=== PATIENT | male | born 1995 | race Asian ===

== ENCOUNTER → 2017-07-24 | Outpatient (CLI) | payer BC ==
[2017-07-24 09:57] LABS: BASOPHILS % 0.7 % (0.0-2.0); HEMATOCRIT. 46.2 % (42.0-52.0); HEMOGLOBIN. 15.9 g/dL (14.0-18.0); MEAN CORPUSCULAR HEMOGLOBIN 28.9 pg (28.0-32.0); MEAN CORPUSCULAR VOLUME 84.3 fL (80.0-94.0); MEAN PLATELET VOLUME 7.7 fl (7.4-10.4); NEUTROPHILS % 53.3 % (40.0-76.0); PLATELET 339 x1000/uL (130-400); RED BLOOD CELL COUNT 5.48 mill/uL (4.7-6.1); RED CELL DISTRIBUTION WIDTH 13.1 % (11.6-14.6)
[2017-07-24 10:06] LABS: CLARITY URINE CLEAR (CLEAR); COLOR URINE YELLOW (YELLOW); GLUCOSE URINE NEGATIVE (NEGATIVE); KETONES URINE NEGATIVE (NEGATIVE); LEUKOCYTE ESTERASE URINE NEGATIVE (NEGATIVE); NITRITE URINE NEGATIVE (NEGATIVE); OCCULT BLOOD URINE NEGATIVE (NEGATIVE); PH URINE 5.5 (4.5-8.0); PROTEIN URINE NEGATIVE (NEGATIVE); SPECIFIC GRAVITY URINE 1.024 (1.005-1.030); UROBILINOGEN URINE 0.2 E.U./dL (0.2-1.0)
[2017-07-24 10:20] LABS: C REACTIVE PROTEIN QUANT 5.7 mg/L (0.0-3.0); CARBON DIOXIDE 27 mEq/L (21-32); CHLORIDE 104 mEq/L (98-107); HDL CHOLESTEROL 40 mg/dL (40-59); LDL CHOLESTEROL 153 mg/dL (5-100); T4 FREE 1.17 ng/dL (0.76-1.46)
[2017-07-24 11:43] LABS: FERRITIN 305 ng/mL (22-322)
[2017-07-24 16:06] LABS: VITAMIN B12 SERUM 378 pg/mL (211-911)
[2017-07-25 13:12] LABS: INSULIN 15.5 uIU/mL (2.6-24.9)
[2017-07-27 17:12] LABS: 25-HYDROXY VITAMIN D3 35 ng/mL (.)
== END | disposition home or self-care (01) ==
LOC: LAB 09:20
PROVIDERS: ATTEND Psychiatry & Neurology Psychiatry
DX: F90.2 Attention-deficit hyperactivity disorder, combined type (principal); F43.10 Post-traumatic stress disorder, unspecified
CPT/HCPCS: 36415; 80053; 80061; 81003; 82306; 82607; 82728; 83036; 83525; 84403; 84439; 84443; 84481; 85025; 86140; 86376; 87186